=== PATIENT | female | born 1970 | race Caucasian/White ===

== ENCOUNTER 2016-09-26 16:40 | Emergency (ER) | payer OTHER ==
[2016-09-26 16:55] VITALS: BMI 21.1
--- NOTE | 2016-09-26 17:02 | PDOC ---
Rapid Medical Evaluation Time Seen by Provider: 09/26/16 16:45 Medical Evaluation: Allergies Allergy/AdvReac Type Severity Reaction Status Date / Time No Known Allergies Allergy Verified 01/19/16 16:42 09/26/16 16:52 I have performed a brief in-person evaluation of this patient. o The patient presents with a chief complaint of: Low back pain, radiating down both legs for two weeks, today developed numbness to legs, ambulatory to the ER. Sent by Dr. Pardo, told needed steroids and MRI. No Saddle anesthesia, denies bowel or bladder difficulty. Took 1/2 10 mg percocet today prior to arrival. + nausea. o Pertinent physical exam findings: Lower spinal point tenderness. o I have ordered the following:urine , UA, C&S o The patient will proceed to the ED for further evaluation.
[2016-09-26 17:33] LABS: URINE APPEARANCE CLEAR; URINE BILIRUBIN NEGATIVE (NEGATIVE); URINE BLOOD NEGATIVE (NEGATIVE); URINE COLOR YELLOW; URINE GLUCOSE (UA) NEGATIVE (NEGATIVE); URINE KETONE NEGATIVE (NEGATIVE); URINE LEUK ESTERASE NEGATIVE (NEGATIVE); URINE NITRITE NEGATIVE (NEGATIVE); URINE PROTEIN NEGATIVE (NEGATIVE); URINE UROBILINOGEN NEGATIVE E.U./dl (0.2-1.0)
[2016-09-26] MEDS ORDERED: HYDROmorphone HCL CARPU-JECT 2 MG/1 ML DISP.SYRIN IVPUSH ONE (18:14)
--- NOTE | 2016-09-26 18:23 | PDOC ---
History of Present Illness - General History Source: Patient Exam Limitations: No Limitations - History of Present Illness Initial Comments: 09/26/16 18:17 46-year-old female with history of chronic low back pain with herniated disc for the past 2 years of L4 and L5 with worsening discomfort causing her pain down her right leg with intermittent paresthesia. Patient denies weakness but states feels unsafe walking due to the pain which comes intermittently when walking causing her right knee to buckle. Patient denies recent injury, saddle anesthesia, incontinence, abdominal pain, lower extremity edema, or numbness. 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 patient states has been taking hydrocodone without relief and was sent here by her PCP, Dr. Stiles Occurred: reports: other Pain Location: reports: back Method of Injury: Yes: unknown Associated Symptoms (Fall): trouble walking <Estela Rodrigez - Last Filed: 09/26/16 18:30> <Rosaura Castillo - Last Filed: 09/26/16 22:03> - General Chief Complaint: Back Pain Stated Complaint: PCP SENT/BACK AND LEG PAIN Time Seen by Provider: 09/26/16 16:45 Past History - Travel Traveled outside of the country in the last 30 days: No Close contact w/someone who was outside of country & ill: No - Past Medical History Asthma: Yes Cardiac Disorders: Yes (H/O ABNORMAL EKG) Diabetes: Yes Psychiatric Problems: Yes (anxiety) Thyroid Disease: Yes (hypothroid) Other medical history: AUTOIMMUNE DISEASE SJOGRENS - Surgical History Orthopedic Surgery: (Yes,rt elbow) - Immunization History Immunization Up to Date: Yes - Psycho/Social/Smoking Cessation Hx Anxiety: Yes Suicidal Ideation: No Smoking Status: Yes Smoking History: Current every day smoker Have you smoked in the past 12 months: No Number of Cigarettes Smoked Daily: 5 Information on smoking cessation initiated: No 'Breaking Loose' booklet given: 01/19/16 Hx Alcohol Use: No Drug/Substance Use Hx: No Substance Use Type: None Patient Lives Alone: No <Estela Rodrigez - Last Filed: 09/26/16 18:30> <Rosaura Castillo - Last Filed: 09/26/16 22:03> - Past Medical History Allergies/Adverse Reactions: Allergies Allergy/AdvReac Type Severity Reaction Status Date / Time No Known Allergies Allergy Verified 01/19/16 16:42 Home Medications: Ambulatory Orders Clonazepam [Klonopin -] 1 mg PO HS 11/30/12 Levothyroxine [Synthroid -] 25 mcg PO DAILY 11/30/12 Norgestimate-Ethinyl Estradiol [Ortho Tri-Cyclen] 1 each PO DAILY 11/30/12 Metformin HCl [Metformin HCl ER] 1,000 mg PO HS 09/26/16 Methylprednisolone [Medrol Dose David] 4 mg PO ASDIR #21 tablet 09/26/16 Oxycodone HCl/Acetaminophen [Percocet 10-325 mg Tablet] 1 each PO QID PRN Zolpidem Tartrate [Ambien] 10 mg PO HS 09/26/16 Review of Systems - Review of Systems Able to Perform ROS?: Yes Constitutional: No: Symptoms Reported HEENTM: No: Symptoms Reported Respiratory: No: Symptoms reported Cardiac (ROS): No: Symptoms Reported ABD/GI: No: Symptoms Reported : No: Symptoms Reported Musculoskeletal: Yes: Back Pain Integumentary: No: Symptoms Reported Neurological: Yes: Paresthesia (right leg), Tingling Endocrine: No: Symptoms Reported Hematologic/Lymphatic: No: Symptoms Reported <Estela Rodrigez - Last Filed: 09/26/16 18:30> *Physical Exam - Vital Signs Last Vital Signs Temp Pulse Resp BP Pulse Ox 98.4 F 106 H 18 148/94 97 09/26/16 16:51 09/26/16 16:51 09/26/16 16:51 09/26/16 16:51 09/26/16 16:51 - Physical Exam General Appearance: Yes: Nourished, Appropriately Dressed, Mild Distress Neck: positive: Supple. negative: Tender, Decreased range of motion Gastrointestinal/Abdominal: positive: Soft. negative: Tenderness Musculoskeletal: positive: Vertebral Tenderness (L4-L5 and bilateral paraspinous muscle tenderness) Extremity: positive: Normal Range of Motion. negative: Tender Integumentary: positive: Normal Color, Warm, Moist Neurologic: positive: Normal Mood/Affect, Motor Strength 5/5 (ambulatory). negative: Numbness, Sensory Deficit <Estela Rodrigez - Last Filed: 09/26/16 18:30> - Vital Signs Last Vital Signs Temp Pulse Resp BP Pulse Ox 98.4 F 106 H 18 148/94 97 09/26/16 16:51 09/26/16 16:51 09/26/16 16:51 09/26/16 16:51 09/26/16 16:51 <Rosaura Castillo - Last Filed: 09/26/16 22:03> ED Treatment Course - ADDITIONAL ORDERS Additional order review: Laboratory Results 09/26/16 17:00 Urine Color Yellow Urine Appearance Clear Urine pH 5.0 Urine Protein Negative Urine Glucose (UA) Negative Urine Ketones Negative Urine Blood Negative Urine Nitrite Negative Urine Bilirubin Negative Urine Urobilinogen Negative Ur Leukocyte Esterase Negative Urine HCG, Qual Negative - RADIOLOGY Radiology Studies Ordered: Category Date Time Status LUMBAR SPINE CT W/O CONTRAST [CT] Stat CT Scan 09/26/16 17:59 Ordered <Estela Rodrigez - Last Filed: 09/26/16 18:30> - ADDITIONAL ORDERS Additional order review: Laboratory Results 09/26/16 17:00 Urine Color Yellow Urine Appearance Clear Urine pH 5.0 Urine Protein Negative Urine Glucose (UA) Negative Urine Ketones Negative Urine Blood Negative Urine Nitrite Negative Urine Bilirubin Negative Urine Urobilinogen Negative Ur Leukocyte Esterase Negative Urine HCG, Qual Negative - Medications Given in the ED: ED Medications Discontinued Medications Generic Name Dose Route Start Last Admin Trade Name Jocelyne PRN Reason Stop Dose Admin Hydromorphone HCl 1 mg 09/26/16 18:14 09/26/16 19:04 Dilaudid Injection - IVPUSH 09/26/16 18:15 1 mg ONCE ONE Administration <Rosaura Castillo - Last Filed: 09/26/16 22:03> Progress Note - Progress Note Progress Note: Discussed results with Dr. Stiles. He would like patient sent home on Medrol dose pack and to follow up. <Rosaura Castillo - Last Filed: 09/26/16 22:03> Medical Decision Making - Medical Decision Making 09/26/16 18:20 Patient with progressively worsening low back pain over the past few weeks unrelieved with hydrocodone. Patient states had an MRI done at 2016 that showed herniated disc of L4-L5. Patient states is receiving pain management also with injections. Based on patient's exam patient had point tenderness to L4-L5 with bilateral paraspinous muscle tenderness. Patient was ordered for CT to compare results. Patient also ordered for urine urine and IV Dilaudid. 09/26/16 18:30 Laboratory Tests 09/26/16 17:00 Urine Protein Negative Urine HCG, Qual Negative <Estela Rodrigez - Last Filed: 09/26/16 18:30> *DC/Admit/Observation/Transfer <Estela Rodrigez - Last Filed: 09/26/16 18:30> - Discharge Dispostion Admit: No <Rosaura Castillo - Last Filed: 09/26/16 22:03> Diagnosis at time of Disposition: Chronic back pain greater than 3 months duration - Discharge Dispostion Disposition: HOME Condition at time of disposition: Improved - Prescriptions Prescriptions: Methylprednisolone [Medrol Dose David] 4 mg PO ASDIR #21 tablet - Referrals Referrals: Jewel Stiles MD [Primary Care Provider] - - Patient Instructions Printed Discharge Instructions: DI for Low Back Pain Additional Instructions: FOLLOW UP WITH DR. STILES DISCUSSED. CALL TO SCHEDULE APPOINTMENT. TAKE MEDICATIONS PRESCRIBED. RETURN IF ANY CONCERNS FOR FURTHER EVALUATION. Print Language: FIJIAN
[2016-09-26] MEDS ORDERED: HYDROmorphone HCL CARPU-JECT 1 MG/1 ML DISP.SYRIN ONE (18:55)
[2016-09-26] MEDS ORDERED: KETOROLAC TROMETHAMINE 30 MG/1 ML VIAL IVPUSH ONE (20:42)
[2016-09-26] MEDS ORDERED: methylPREDNISolone NA SUCC 125 MG/2 ML VIAL IVPB ONE (20:48)
[2016-09-26] MEDS ORDERED: methylPREDNISolone NA SUCC 125 MG/2 ML VIAL ONE (21:14)
[2016-09-26] MEDS ORDERED: KETOROLAC TROMETHAMINE 30 MG/1 ML VIAL ONE (21:14)
[2016-09-26 23:22] VITALS: BP 128/74; PULSE 82; TEMP 98.5
== END 2016-09-26 23:10 | disposition home or self-care (01) ==
LOC: JER 16:40
PROC: 3E033NZ Introduction of Analgesics, Hypnotics, Sedatives into Peripheral Vein, Percutaneous Approach (ICD-10-PCS; principal; 2016-09-26)
PROC: 3E0333Z Introduction of Anti-inflammatory into Peripheral Vein, Percutaneous Approach (ICD-10-PCS; 2016-09-26)
PROC: 3E033GC Introduction of Other Therapeutic Substance into Peripheral Vein, Percutaneous Approach (ICD-10-PCS; 2016-09-26)
DX: M54.5 Low back pain (principal); G89.29 Other chronic pain; F41.9 Anxiety disorder, unspecified; F17.210 Nicotine dependence, cigarettes, uncomplicated; J45.909 Unspecified asthma, uncomplicated; E03.9 Hypothyroidism, unspecified
CPT/HCPCS: 72131-TC; 81003; 84703; 87086; 96374; 96375; 99282-25

== ENCOUNTER 2022-09-25 18:09 | Emergency (ER) | payer OTHER ==
[2022-09-25 18:18] VITALS: BP 132/74; PULSE 103; RESP 18; TEMP 98.7; BMI 31.0
[2022-09-25] MEDS ORDERED: ACETAMINOPHEN 1000 MG/100 ML BAG IVPB ONE (19:27)
[2022-09-25] MEDS ORDERED: ACETAMINOPHEN INJECTION 100 ML IVPB ONE (20:18)
[2022-09-25 21:56] LABS: URINE APPEARANCE CLEAR; URINE BILIRUBIN NEGATIVE (NEGATIVE); URINE COLOR YELLOW; URINE GLUCOSE (UA) NEGATIVE (NEGATIVE); URINE KETONE NEGATIVE (NEGATIVE); URINE LEUK ESTERASE NEGATIVE (NEGATIVE); URINE NITRITE NEGATIVE (NEGATIVE); URINE PROTEIN NEGATIVE (NEGATIVE); URINE UROBILINOGEN 0.2 mg/dL (0.2-1.0)
[2022-09-25 21:57] LABS: BASO % 0.2 % (0-2.0); EOS % 3.7 % (0-4.5); HEMOGLOBIN 15.5 GM/dL (10.7-15.3); LYMPH % 32.3 % (8-40); MCH 32.1 pg (25.7-33.7); MCHC 33.6 g/dl (32.0-36.0); MEAN CELL VOLUME 95.4 fl (80-96); MEAN PLT VOLUME 7.8 fl (7.5-11.1); MONO % 6.7 % (3.8-10.2); NEUT % 57.1 % (42.8-82.8); PLATELET COUNT 338 10^3/uL (134-434); RBC 4.82 M/mm3 (3.60-5.2); RDW 15.5 % (11.6-15.6); WHITE BLOOD COUNT 16.6 K/mm3 (4.0-10.0)
[2022-09-25 22:15] LABS: POTASSIUM 4.2 mmol/L (3.5-5.1)
[2022-09-25 22:17] LABS: BLOOD UREA NITROGEN 10.9 mg/dL (7-18); CALCIUM 9.1 mg/dL (8.5-10.1)
[2022-09-25 22:18] LABS: ALBUMIN 3.8 g/dl (3.4-5.0)
[2022-09-25 22:22] LABS: BILIRUBIN,TOTAL 0.3 mg/dL (0.2-1); TOT PROT 7.3 g/dl (6.4-8.2)
== END 2022-09-25 22:42 | disposition home or self-care (01) ==
LOC: JER 18:09
PROC: 3E033NZ Introduction of Analgesics, Hypnotics, Sedatives into Peripheral Vein, Percutaneous Approach (ICD-10-PCS; principal; 2022-09-25)
DX: M25.522 Pain in left elbow (principal); M25.531 Pain in right wrist; M54.2 Cervicalgia; R53.1 Weakness; W01.0XXA Fall on same level from slipping, tripping and stumbling without subsequent striking against object, initial encounter; Z20.822 Contact with and (suspected) exposure to COVID-19
CPT/HCPCS: 0241U-QW; 36415; 72125-TC; 72131-TC; 73070-TC-LT-FY; 73110-TC-RT-FY; 73130-TC-RT-FY; 80053; 81003; 83735; 84443; 84703; 85025; 87086; 99285-25

== ENCOUNTER 2023-05-28 16:26 | Emergency (ER) | payer OTHER ==
[2023-05-28 17:05] VITALS: BP 114/69; PULSE 95; RESP 20; TEMP 97.3; BMI 30.7
[2023-05-28 18:15] LABS: VENOUS BASE EXCESS 2.4 mmol/L (-2-2); VENOUS O2 SATURATION 88.7 % (70-80); VENOUS PCO2 44.1 mmHg (38-52); VENOUS PH 7.412 (7.310-7.410)
[2023-05-28 18:20] LABS: HEMATOCRIT 37.5 % (32.4-45.2); HEMOGLOBIN 12.7 GM/dL (10.7-15.3); MCH 33.6 pg (25.7-33.7); MCHC 33.9 g/dl (32.0-36.0); MEAN CELL VOLUME 99.1 fl (80-96); MEAN PLT VOLUME 7.2 fl (7.5-11.1); PLATELET COUNT 374 10^3/uL (134-434); RBC 3.79 M/mm3 (3.60-5.2); RDW 17.6 % (11.6-15.6)
[2023-05-28 18:37] LABS: POTASSIUM 4.9 mmol/L (3.5-5.1)
[2023-05-28 18:41] LABS: ALBUMIN 3.8 g/dl (3.4-5.0); CALCIUM 9.6 mg/dL (8.5-10.1)
[2023-05-28 18:42] LABS: BLOOD UREA NITROGEN 19.3 mg/dL (7-18)
[2023-05-28 18:44] LABS: CREATININE 1.1 mg/dL (0.55-1.3)
[2023-05-28 18:46] LABS: BILIRUBIN,TOTAL 0.3 mg/dL (0.2-1); TOT PROT 7.2 g/dl (6.4-8.2)
[2023-05-28 18:51] LABS: INR 0.9 (0.83-1.09); PROTHROMBIN TIME (PATIENT) 10.4 SEC (9.7-13.0)
[2023-05-28 18:53] LABS: ACTIVATED PTT 27.1 SECONDS (25.2-36.5)
[2023-05-28 19:15] LABS: URINE APPEARANCE CLEAR; URINE BILIRUBIN NEGATIVE (NEGATIVE); URINE COLOR YELLOW; URINE GLUCOSE (UA) NEGATIVE (NEGATIVE); URINE KETONE NEGATIVE (NEGATIVE); URINE LEUK ESTERASE NEGATIVE (NEGATIVE); URINE NITRITE NEGATIVE (NEGATIVE); URINE PROTEIN NEGATIVE (NEGATIVE); URINE UROBILINOGEN 0.2 mg/dL (0.2-1.0)
[2023-05-28] MEDS: SODIUM CHLORIDE 0.9% 500 ML INFUS.BAG IV ONE (20:15)
[2023-05-28 21:40] LABS: PLATELET ESTIMATE NORMAL
[2023-05-28] MEDS ORDERED: valACYclovir HCL 500 MG TABLET (FP) ONE ×2 (23:45→23:49)
[2023-05-28] MEDS: valACYclovir HCL 500 MG TABLET (FP) PO ONE (23:59)
== END 2023-05-29 00:19 | disposition home or self-care (01) ==
LOC: JER 16:26
DX: R07.0 Pain in throat (principal); R50.9 Fever, unspecified; R07.89 Other chest pain; R06.02 Shortness of breath; Z20.822 Contact with and (suspected) exposure to COVID-19
CPT/HCPCS: 0241U-QW; 36415; 71045-TC-FY; 80053; 81003; 82550; 82803; 83605; 84484; 85025; 85610; 85730; 87086; 87651; 99284-25